=== PATIENT | female | born 1930 | race American Indian/Alaskan Native ===

== ENCOUNTER 2017-11-26 11:56 | Inpatient (IN) | payer OTHER, MEDICAID ==
--- NOTE | 2017-11-26 13:08 | EDPHY ---
H & P Stated Complaint: 2 left foot wounds concerned re infected here from wound care clinic Time Seen by Provider: 11/26/17 12:55 HPI/ROS: CHIEF COMPLAINT: Wound infection left ankle HISTORY OF PRESENT ILLNESS: 87-year-old female with diabetes presents with a wound infection on the left ankle. She has a 3 month history of an open wound on the medial aspect of the left foot. Over the last week, she has developed another wound on the posterior aspect of the ankle. Associated with moderate pain and inability to bear weight. She was sent here by the wound care clinic for MRI and further evaluation. No fever or chills. She is not on antibiotics. REVIEW OF SYSTEMS: complete 10 point ROS negative except at noted in the HPI - Personal History Current Tetanus/Diphtheria Vaccine: Yes Current Tetanus Diphtheria and Acellular Pertussis (TDAP): Yes Tetanus Vaccine Date: < 10 years - Medical/Surgical History Hx Asthma: No Hx Chronic Respiratory Disease: No Hx Diabetes: Yes Hx Cardiac Disease: Yes Hx Renal Disease: Yes Hx Cirrhosis: No Hx Alcoholism: No Hx HIV/AIDS: No Hx Splenectomy or Spleen Trauma: No Other PMH: DM 2, stage 5 kidney disease, PR, dementia, HTN - Social History Smoking Status: Never smoked - Physical Exam Exam: General Appearance: Alert, pleasant Eyes: Pupils equal and round, no conjunctival pallor or injection ENT, Mouth: Mucous membranes moist Neck: Normal inspection Respiratory: Lungs are clear to auscultation Cardiovascular: Regular rate and rhythm, 2/6 systolic murmur Gastrointestinal: Abdomen is soft and nontender Neurological: A&O, nonfocal exam Skin: Warm and dry Extremities: Left ankle-there is a 2 cm open wound on the posterior aspect of the ankle with surrounding fluctuance and erythema, serous drainage present, able to move left ankle without pain; 1.5 cm open wound on the medial aspect of the left ankle, without erythema, warmth or tenderness Psychiatric: Mood and affect normal Constitutional: Initial Vital Signs Temperature (C) 36.9 C 11/26/17 12:00 Heart Rate 58 L 11/26/17 12:00 Respiratory Rate 18 11/26/17 12:00 Blood Pressure 104/53 L 11/26/17 12:00 O2 Sat (%) 100 11/26/17 12:00 O2 Delivery Mode Room Air Allergies/Adverse Reactions: No Known Allergies Allergy (Unverified 11/26/17 11:59) Home Medications: Medication Instructions Recorded Aspirin [Aspirin 81mg (*)] 81 mg PO DAILY 11/26/17 Calcitriol [Calcitriol (*)] 0.25 mcg PO MOFR 11/26/17 Carvedilol [Carvedilol] 12.5 mg PO BID 11/26/17 Clopidogrel Bisulfate [Clopidogrel] 75 mg PO DAILY 11/26/17 Furosemide [Lasix 40 MG (*)] 40 mg PO DAILY 11/26/17 Gabapentin [Neurontin 300 MG (*)] 600 mg PO HS 11/26/17 Levothyroxine [Synthroid 112 mcg 112 mcg PO DAILY06 11/26/17 (*)] Pravastatin Sodium [Pravachol] 40 mg PO HS 11/26/17 SITAGLIPTIN PHOSPHATE [Januvia 50 50 mg PO DAILY 11/26/17 mg] Sodium Bicarbonate [Na Bicarb] 650 mg PO BID 11/26/17 Medical Decision Making - Diagnostics Imaging Results: Imaging Impressions Lower Extremity MRI 11/26/17 13:09 Impression: 1. Soft tissue wound with cellulitis medial to the posterior calcaneus with adjacent osteomyelitis in the posteromedial calcaneus and some osseous erosion. Adjacent moderate tendinopathy and partial tear of the distal Achilles tendon medially. Inflammatory change with possible early phlegmon in Kager's fat pad. 2. Mild tendinopathy distal tibialis posterior tendon. Mild adenopathy peroneal brevis and longus tendon. 3. Moderate plantar fasciitis with partial tear with a large enthesophyte at the plantar insertion of the calcaneus. Results called and discussed with Dr. Nohemi Jewell on November 26, 2017 at 1542 hours. ED Course/Re-evaluation: This patient presents with cellulitis and probable abscess of the left ankle, concern for osteomyelitis. She is nontoxic-appearing and does not meet SIRS criteria. Blood cultures drawn and Ancef 1 g IV given. Consult[address] Dr. Cabrera, plan for MRI, antibiotics and admission. The hospitalist service was consulted for admission. - Data Points Laboratory Results: Laboratory Results 11/26/17 13:12 11/26/17 13:12 11/26/17 11/26/17 11/26/17 13:12 13:12 13:12 WBC 10.08 10^3/uL H 10^3/uL (3.80-9.50) RBC 2.49 10^6/uL L 10^6/uL (4.18-5.33) Hgb 7.4 g/dL L g/dL (12.6-16.3) Hct 23.8 % L % (38.0-47.0) MCV 95.6 fL fL (81.5-99.8) MCH 29.7 pg pg (27.9-34.1) MCHC 31.1 g/dL L g/dL (32.4-36.7) RDW 13.8 % % (11.5-15.2) Plt Count 367 10^3/uL 10^3/uL (150-400) MPV 8.7 fL fL (8.7-11.7) Neut % (Auto) 81.9 % H % (39.3-74.2) Lymph % (Auto) 8.0 % L % (15.0-45.0) Dupage % (Auto) 7.7 % % (4.5-13.0) Eos % (Auto) 1.1 % % (0.6-7.6) Baso % (Auto) 0.6 % % (0.3-1.7) Nucleat RBC Rel Count 0.0 % % (0.0-0.2) Absolute Neuts (auto) 8.25 10^3/uL H 10^3/uL (1.70-6.50) Absolute Lymphs (auto) 0.81 10^3/uL L 10^3/uL (1.00-3.00) Absolute Monos (auto) 0.78 10^3/uL 10^3/uL (0.30-0.80) Absolute Eos (auto) 0.11 10^3/uL 10^3/uL (0.03-0.40) Absolute Basos (auto) 0.06 10^3/uL 10^3/uL (0.02-0.10) Absolute Nucleated RBC 0.00 10^3/uL 10^3/uL (0-0.01) Immature Gran % 0.7 % % (0.0-1.1) Immature Gran # 0.07 10^3/uL 10^3/uL (0.00-0.10) VBG Lactic Acid 1.8 mmol/L mmol/L (0.7-2.1) Sodium 135 mEq/L mEq/L (135-145) Potassium 3.2 mEq/L L mEq/L (3.5-5.2) Chloride 97 mEq/L mEq/L (97-110) Carbon Dioxide 24 mEq/l mEq/l (22-31) Anion Gap 14 mEq/L mEq/L (8-16) BUN 57 mg/dL H mg/dL (7-23) Creatinine 4.0 mg/dL H mg/dL (0.6-1.0) Estimated GFR 11 Glucose 144 mg/dL H mg/dL (70-100) Calcium 7.3 mg/dL L mg/dL (8.5-10.4) Phosphorus 4.3 mg/dL mg/dL (2.5-4.5) Microbiology Results: MICROBIOLOGY 11/26/17 13:00 Ankle - Swab Gram Stain - Final Medications Given: Acetaminophen (Tylenol) 650 mg PO Q4HRS PRN PRN Reason: Pain, Mild/Fever, Can Take PO Stop: 05/25/18 13:20 Last Admin: 11/26/17 16:21 Dose: 650 mg Calcitriol (Calcitriol) 0.25 mcg PO MoFr@0900 [facility] Stop: 05/25/18 16:14 Last Admin: 11/26/17 16:22 Dose: 0.25 mcg Carvedilol (Coreg) 12.5 mg PO BIDMEAL [facility] Stop: 05/25/18 17:59 Last Admin: 11/26/17 19:12 Dose: 12.5 mg Vancomycin HCl 500 mg/ (Dextrose) 100 mls @ 100 mls/hr IV Q48H GARRETT Stop: 12/26/17 15:59 Last Admin: 11/26/17 16:16 Dose: 100 mls Discontinued Medications Calcitriol (Calcitriol) 250 mcg PO MOFR [facility] Stop: 05/25/18 15:29 Last Admin: 11/26/17 16:24 Dose: Not Given Cefazolin Sodium/Dextrose (Ancef 1 Gm (Premix)) 50 mls @ 200 mls/hr IV EDNOW ONE PRN Reason: Protocol Stop: 11/26/17 13:26 Last Admin: 11/26/17 13:48 Dose: 50 mls Departure - Departure Disposition: [facility] Acute Clinical Impression: Cellulitis Qualifiers: Site of cellulitis: extremity Site of cellulitis of extremity: lower extremity Laterality: left Qualified Code(s): L03.116 - Cellulitis of left lower limb Osteomyelitis Qualifiers: Osteomyelitis type: other acute Osteomyelitis location: ankle Laterality: left Qualified Code(s): M86.172 - Other acute osteomyelitis, left ankle and foot Condition: Fair
[2017-11-26] MEDS ORDERED: ONDANSETRON DISINTEGRATING 4 MG TAB PO PRN (13:21)
[2017-11-26] MEDS ORDERED: ONDANSETRON 4 MG/2 ML VIAL IVP PRN (13:21)
[2017-11-26] MEDS ORDERED: OXYCODONE/APAP 5/325 TAB PO PRN (13:21)
--- NOTE | 2017-11-26 13:24 | ASMTLACE ---
STEVE Acuity / Level of Answers: Yes Care: Did the patient have an inpatient admission? Comorbidities - select Answers: Coronary Artery Disease all that apply Dementia Diabetes (uncontrolled or controlled) Moderate or severe liver or renal disease # of Emergency department Answers: 1-2 visits in the last 6 months Score: 14 Date Signed: 11/26/2017 01:23 PM Electronically Signed By:Heather Linn RN
[2017-11-26 13:25] LABS: PLATELET COUNT 367 10^3/uL (150-400)
[2017-11-26] MEDS ORDERED: CALCITRIOL 0.25 MCG CAP PO SCH ×2 (15:30→16:15)
[2017-11-26] MEDS ORDERED: VANCOMYCIN 500 MG in D5W 100 ML IV SCH (16:00)
[2017-11-26] MEDS: ACETAMINOPHEN 325 MG TAB PO PRN (16:21)
[2017-11-26] MEDS: CARVEDILOL 25 MG TAB PO SCH (19:12)
[2017-11-26] MEDS: HEPARIN 5,000 UNIT/0.5 ML SYR SC SCH (20:45)
[2017-11-26] MEDS: SODIUM BICARBONATE 650 MG TAB PO SCH (20:45)
[2017-11-26] MEDS: GABAPENTIN 300 MG CAP PO SCH (20:45)
[2017-11-26] MEDS: PRAVASTATIN SODIUM 40 MG TAB PO SCH (20:45)
[2017-11-26] MEDS ORDERED: CARVEDILOL 12.5 MG PO SCH (21:00)
[2017-11-27 05:09] LABS: PLATELET COUNT 361 10^3/uL (150-400)
[2017-11-27] MEDS: LEVOTHYROXINE 112 MCG TAB PO SCH (05:32)
[2017-11-27] MEDS: HEPARIN 5,000 UNIT/0.5 ML SYR SC SCH ×3 (05:32→21:05)
--- NOTE | 2017-11-27 08:07 | GCON ---
[f rep st] CONSULTATION CHIEF COMPLAINT: Left ankle wound. HISTORY OF PRESENT ILLNESS: Brii Olvera is an 87-year-old woman with end-stage diabetes who has a three month history of open wound over the medial aspect of her left foot. Over the previous month s he has noticed increasing breakdown of the skin over the posterior aspect of her ankle along her Achi lles tendon. She has developed increasing pain and inability bear weight. I have been consulted by Dr. Pavihtra Cabrera for additional discussion and treatment recommendations. She has a recent MRI which is consistent with osteomyelitis to her foot and ankle. PAST MEDICAL HISTORY: Cardiac disease, diabetes, renal disease, dementia and hypertension. MEDICATIONS: She takes aspirin, carvedilol and Plavix. ALLERGIES: No known drug allergies. SOCIAL HISTORY: Denies any tobacco or alcohol use currently. OBJECTIVE: This is a healthy, elderly woman in no acute distress. Examination of her left lower ext remity reveals a dressing which was taken down. She has a 1.5 cm ulcer over the medial calcaneus as well as a 1.5 cm ulcer over the posterior Achilles. There is gross purulence at the Achilles ulcer. The foot is indurated. She has intact ankle plantar flexion, dorsiflexion, digital flexion extensio n. Decreased sensation diffusely. An MRI of her lower extremities demonstrates soft tissue wounds over the posterior medial calcaneus a nd Achilles. There is partial tearing of the Achilles tendon. There is osteomyelitis through the ca lcaneus. IMPRESSION: Diabetic foot ulcer with associated osteomyelitis. TREATMENT PLAN: I spent 30 minutes [id number] discussion with her on treatment recommendations. Clint iven her age, diabetes and clear presence of osteomyelitis with nonhealing ulcers to her lower extrem ity in this area, I feel that soft tissue coverage would be a clear detriment to primary treatment of her ulcers. I have discussed amputation with below-knee amputation as the best treatment recommenda tion for removal of the infection, a stable wound bed may be healed and mobility. I will contact the patient's daughter this morning to discuss this further. I did discuss if this is left chronically that this will likely result in hospice placement as the infection progresses and ultimately sepsis angelita calloway. /[id number]/MODL
[2017-11-27] MEDS: CARVEDILOL 25 MG TAB PO SCH ×2 (08:43→17:42)
[2017-11-27] MEDS: SODIUM BICARBONATE 650 MG TAB PO SCH ×2 (08:44→21:05)
[2017-11-27] MEDS ORDERED: SITAGLIPTIN PHOSPHATE 50 MG PO SCH (09:00)
--- NOTE | 2017-11-27 13:18 | SOAPPROG ---
SOAP Progress Note Assessment/Plan: Assessment: attempted to see twice, patient on commode and did not want exam at that time. Will see tomorrow - did discuss case with hospitalist and reviewed ortho consultation - given degree of wound will keep in house, will ask ID to see. Recs from both surgery and ortho at this time are for amp. Pt wants to wait for Rick to eval and discuss. - Nothing new to add Plan: 11/27/17 13:16 Objective: Vital Signs Temp Pulse Resp BP Pulse Ox 36.8 C 66 14 145/73 H 96 11/27/17 07:50 11/27/17 07:50 11/27/17 07:50 11/27/17 07:50 11/27/17 07:50 Laboratory Results 11/27/17 04:45 11/27/17 04:45 ICD10 Worksheet Patient Problems: Problems Problem Status Onset Cellulitis Acute Osteomyelitis Acute
--- NOTE | 2017-11-27 13:51 | HOSPPROG ---
Hospitalist Progress Note Assessment/Plan: 87y female with chronic wound. Sent from wound clinic. First encounter, chart reviewed. D/W Dr polanco and Dr Nagel. #Wound with osteomylitis rec amputation pt waiting to d/w Dr Cabrera, returns on Wednesday cont IV abx consult Dr Nagel #ESRD pt not on HD not intervention at baseline #DM cont home meds #Anemia chronic disease stable #Dispo unclear D/W CM consider home with IV abx vs in hospital care Subjective: Pt sleeping. Arousable. Objective: Vital Signs Temp Pulse Resp BP Pulse Ox 36.8 C 66 14 158/89 H 96 11/27/17 07:50 11/27/17 09:00 11/27/17 07:50 11/27/17 09:00 11/27/17 09:00 Laboratory Results 11/27/17 04:45 11/27/17 04:45 - Physical Exam Constitutional: appears nourished, not in pain, chronically ill appearing Eyes: PERRL, anicteric sclera, EOMI Ears, Nose, Mouth, Throat: moist mucous membranes, hearing normal, ears appear normal Cardiovascular: No JVD, No tachycardia, No edema Respiratory: no respiratory distress, no rales or rhonchi, reduced air movement Gastrointestinal: normoactive bowel sounds, No tenderness, No ascites Skin: warm, erythema, pressure ulcer Musculoskeletal: pain with ROM, muscular tenderness, generalized weakness Psychiatric: not anxious, poor insight, poor judgement ICD10 Worksheet Patient Problems: Problems Problem Status Onset Cellulitis Acute Osteomyelitis Acute
--- NOTE | 2017-11-27 14:17 | PDMN ---
Medical Necessity Medical necessity: C/M review: est. > 2 MN LOS for ongoing acute and persistent left ankle wound with osteomyelitis, requiring Orthopedic consult which recommends amputation, General Surgery consult, planned Infectious Disease consult, ongoing IV Vancomycin, comorbid ESRD not on hemodialysis, diabetes, chronic anemia per 11/27/2017 Hospitalist progress note.
--- NOTE | 2017-11-27 15:50 | GCON ---
[f rep st] CONSULTATION INPATIENT INFECTIOUS DISEASE CONSULTATION REFERRING PHYSICIAN: Jerri Carey NP REASON FOR REFERRAL: Left calcaneal osteomyelitis. HISTORY OF PRESENT ILLNESS: Patient is an 87-year-old female, who was referred to the emergency room on 11/26/2017 for admission due to worsening left lower extremity wounds. The patient has known und erlying diabetes for many decades. She has moderate to severe chronic renal insufficiency and known peripheral vascular disease. The patient did undergo an MRI upon this admission yesterday, and the M RI revealed calcaneal osteomyelitis on the posterior medial aspect of the left foot. There were also multiple tendinopathies in the area as well. The patient had surgical consultation from Orthopedics as well as General Surgery, who both agree that the healing potential for this patient with debridem ent and wound care is extraordinarily low. Both suggest [id number] amputation. We are consulted to help guide antibiotic treatment, as there was some concern that she has periwound infection in th e left heel area. Culture was taken of the wound yesterday, and it is growing multiple bacteria with group A Streptococcus subcultured out. The patient does not have any fevers or chills. She has sig nificant underlying dementia. Her [id number] is her daughter, who is in the room. She states that her mother is feeling decent today. No systemic indications of infection. She has not been on any antibiotics for the last 3 months. She did receive a dose of vancomycin yesterday. PAST MEDICAL HISTORY: 1. Coronary artery disease, status post myocardial infarction. 2. Diabetes mellitus type 2. 3. Chronic renal insufficiency secondary to #2. 4. Mild to severe dementia. 5. Hypertension. PAST SURGICAL HISTORY: None noted. ANTIBIOTICS: Vancomycin x1. ALLERGIES: No known drug allergies. SOCIAL HISTORY: The patient has very good family support. No alcohol, tobacco or drug use noted. FAMILY HISTORY: Reviewed, but noncontributory. REVIEW OF SYSTEMS: Other than that detailed above in history of present illness, a comprehensive 10- system review is negative. PHYSICAL EXAMINATION: VITAL SIGNS: Temperature maximum is 37.1. Temperature current is 36.8, heart rate 66. Respiratory rate is 14. Blood pressure is 145/73. GENERAL: The patient is a well-formed , thin, elderly female, in no acute distress. She is not toxic in appearance. She is alert, but unc lear her orientation. She is pleasant in demeanor. HEENT: Normocephalic for age. Atraumatic. No scleral icterus. No oral lesion. No drainage from the nares. Eyes, lids, conjunctiva are within normal limits. Pupils are equal and round bilaterally. NECK: Mcclain pple. No meningismus. LUNGS: Clear to auscultation bilaterally. Good effort. HEART: Regular rat e and rhythm. No significant peripheral edema. SKIN: Warm and dry to the touch. No rashes noted. Patient has open ulcerations on the posterior aspect of her left foot. The medial ulceration is slo ugh filled at its base. Has dusky erythema surrounding. Posterior more midline ulceration has more discharge, but is also slough filled. There is also dusky erythema surrounding this skin defect. Th e erythema is confluent with both. There is no streaking up the leg. There is no significant tender ness around the area. LABORATORY DATA: Patient has a CBC dated 11/27/2017, shows a white blood cell count of 6.7, hemoglob in 7.2, hematocrit 22.8, platelet count of 361. Differential is within normal limits. Serum air quality [facility] on 11/27/2017 show sodium 139, potassium 3.6, chloride 103, bicarb 26, BUN 58, creatinine of 3.7 . MICROBIOLOGIC DATA: Blood cultures on 11/26/2017 are pending. Ankle wound swab on 11/26/2017 is lino wing mixed cutaneous ruth with 4+ group A Streptococcus. RADIOLOGIC DATA: Left lower extremity MRI from 11/26/2017 shows soft tissue wound with cellulitis me dial to the posterior calcaneus with adjacent osteomyelitis in the posterior medial calcaneus with so me osseous erosion. Also shows adjacent moderate tendinopathy and a partial tear of the distal Achil les tendon. Also shows inflammatory change with possible early phlegmon in the nearby fat pad. ASSESSMENT: Left posterior heel open ulcerations probably secondary to poor arterial circulation. U nclear whether or not these are secondarily infected. The bacterial cultures are reminiscent of what would typically be on the skin surface, but could also be pathogenic in the soft tissues. I am not against covering for skin and soft tissue infection, although I do not think using IV antibiotics to try to treat the calcaneal osteomyelitis is going to be fruitful, given that the wound healing and co verage of that open area is unlikely to be complete, even following 6 weeks of treatment. The only p ossible long-term scenario of keeping her infection from causing ultimate life-threatening problems w ould be a left BKA in my estimation. This has been discussed with the patient and her daughter chante de leon, and they are understanding that. I suggest that we could place her on oral beta lactam antibiotic s such as Augmentin to go home in order to try to keep the soft tissue process at bay, which I think would be quite successful, and then meet with Dr. Dubon when she returns on Wednesday or Wednesday to d iscuss semi-elective amputation. This was received well by the patient and her daughter. Will discu ss with Dr. Dubon to see if we can proceed with this plan. PLAN: 1. No more vancomycin, given the chronic renal insufficiency. 2. Probably recommend oral Augmentin renally adjusted to go home to attempt to treat any soft tissue infection around these open ulcers. Acknowledging the osteomyelitis is ultimately not curable, give n the vasculopathy and diabetes. Would then defer to surgical plans with Dr. Dubon. 3. Continue wound care. /[id number]/MODL
--- NOTE | 2017-11-27 16:39 | ASMTCMCOM ---
CM Note CM Note Notes: Pt. is an 87-year-old woman admitted with a bad left ankle wound that is found to be growing Group A Strep. A below the knee amputation has been recommended, but Pt. does not want to proceed without discussing options with Dr. Cabrera. Due to Dr. Cabrera not being back until Wednesday, Hospitalist wondered if we should d/c Pt. home in the meantime. ID consult suggests Pt. can likely go home with oral Augmentin until surgical consult with Dr. Cabrera. Pt. may d/c tomorrow. CM needs to work with Pt. and daughter regarding plan. Date Signed: 11/27/2017 04:39 PM Electronically Signed By:Yanci Gloria LCSW
[2017-11-27] MEDS: ACETAMINOPHEN 325 MG TAB PO PRN (17:45)
[2017-11-27] MEDS: GABAPENTIN 300 MG CAP PO SCH (21:05)
[2017-11-27] MEDS: PRAVASTATIN SODIUM 40 MG TAB PO SCH (21:05)
[2017-11-28] MEDS: ACETAMINOPHEN 325 MG TAB PO PRN (05:03)
[2017-11-28] MEDS: HEPARIN 5,000 UNIT/0.5 ML SYR SC SCH (05:03)
[2017-11-28] MEDS: LEVOTHYROXINE 112 MCG TAB PO SCH (05:04)
[2017-11-28] MEDS: SODIUM BICARBONATE 650 MG TAB PO SCH (08:09)
[2017-11-28] MEDS: CARVEDILOL 25 MG TAB PO SCH (08:11)
[2017-11-28 08:13] VITALS: BP 154/72
--- NOTE | 2017-11-28 09:51 | SOAPPROG ---
SOAP Progress Note Assessment/Plan: Assessment: wants to go home. Planning dc later today. Still hasnt made up her mind about how to proceed. Will see Dr Cabrera this week to discuss further plans. Plan: 11/27/17 13:16 11/28/17 09:51 Subjective: no complaints Objective: Vital Signs Temp Pulse Resp BP Pulse Ox 37.0 C 65 16 154/72 H 95 11/28/17 08:13 11/28/17 08:11 11/28/17 08:13 11/28/17 08:11 11/27/17 23:38 Laboratory Results 11/27/17 04:45 11/27/17 04:45 11/27/17 11/28/17 11/29/17 05:59 05:59 05:59 Intake Total 100 Output Total 1 Balance 99 ICD10 Worksheet Patient Problems: Problems Problem Status Onset Cellulitis Acute Osteomyelitis Acute
--- NOTE | 2017-11-28 10:49 | ASMTCMCOM ---
CM Note CM Note Notes: CM spoke with hospitalist, floor RN, patient and daughter, plan for patient to discharge home today independently with daughter. Will follow up with Dr. Cabrera on . IM given to patient, signed copy placed in back of chart. CM available for any additional CM needs. D/C Plan: D/C home today independent with daughter. Date Signed: 11/28/2017 10:49 AM Electronically Signed By:Shiela Gamez
--- NOTE | 2017-11-28 14:58 | GDS ---
[f rep st] DISCHARGE SUMMARY DISCHARGE DIAGNOSES: 1. Osteomyelitis. 2. Diabetes mellitus. 3. End-stage renal disease. CONSULTATIONS: 1. General Surgery. 2. Infectious Disease. PHYSICAL EXAM: GENERAL: The patient is alert. VITAL SIGNS: Afebrile at 37, pulse 65, respiratory rate is 16, blood pressure is 154/72. She is saturating greater than 90% on room air. I have seen and evaluated the patient on the day of discharge. HOSPITAL COURSE: The patient is an 87-year-old female sent to hospital from the Wound Clinic. She was evaluated and diagnosed with: 1. Osteomyelitis of the left lower extremity. During this hospitalization, it was recommended that she have a BKA. This recommendation was by General Surgery as well as Orthopedics and Infectious Disease. The patient has refused this at this time and will make a decision in the outpatient setting. She will continue on oral Augmentin. 2. End-stage renal disease. She chooses not to have dialysis and is at her baseline renal function. 3. Diabetes mellitus. Again, her blood sugar will be controlled. 4. Disposition: She will be discharged home. She has been offered home health care; however, she and her family have refused at this time. Followup will be in [address] Mickie Cabrera, her general surgeon. DISCHARGE MEDICATIONS: Please refer to EMR form. I have provided the patient a prescription for Augmentin renally dosed 250 mg daily. Again, she will follow up with her primary care physician. I have spent greater than 35 minutes in the care, coordination, and management of the patient's disposition. /[id number]/MODL MTDD
--- NOTE | 2017-11-28 15:40 | ASDISCHSUM ---
Discharge Information Plan Status:Home with Home Health Medically Cleared to Leave: Discharge Date:11/28/2017 11:25 AM CM D/C Disposition:Home Health Service ADT D/C Disposition:Home, Routine, Self-Care Projected Discharge Date:11/28/2017 11:25 AM Transportation at D/C:Family Discharge Delay Reason: Follow-Up Date:11/28/2017 11:25 AM Discharge Slot:1 - 8:01 am - 12:00 noon Final Diagnosis: Placement Information Patient Contact Information Contact Name:LUIS M Relationship:Daughter Address:[address] [place] Alternate Phone: State/Zip Code:[place] [address] Email: Financial Information Financial Class:Medicare Primary Plan Desc:MEDICARE INPATIENT Primary Plan Number:[id number] Secondary Plan Desc:[place] Secondary Plan Number:[id number] Assessment Information LACE LACE Acuity / Level of Answers: Yes Care: Did the patient have an inpatient admission? Comorbidities - select Answers: Coronary Artery Disease all that apply Dementia Diabetes (uncontrolled or controlled) Moderate or severe liver or renal disease # of Emergency department Answers: 1-2 visits in the last 6 months Score: 14 Date Signed: 11/26/2017 01:23 PM Electronically Signed By:Heather Linn RN [facility] CM Progress Note CM Note CM Note Notes: Pt. is an 87-year-old woman admitted with a bad left ankle wound that is found to be growing Group A Strep. A below the knee amputation has been recommended, but Pt. does not want to proceed without discussing options with Dr. Cabrera. Due to Dr. Cabrera not being back until Wednesday, Hospitalist wondered if we should d/c Pt. home in the meantime. ID consult suggests Pt. can likely go home with oral Augmentin until surgical consult with Dr. Cabrera. Pt. may d/c tomorrow. CM needs to work with Pt. and daughter regarding plan. Date Signed: 11/27/2017 04:39 PM Electronically Signed By:Yanci Gloria LCSW [facility] CM Progress Note CM Note CM Note Notes: CM spoke with hospitalist, floor RN, patient and daughter, plan for patient to discharge home today independently with daughter. Will follow up with Dr. Cabrera on . IM given to patient, signed copy placed in back of chart. CM available for any additional CM needs. D/C Plan: D/C home today independent with daughter. Date Signed: 11/28/2017 10:49 AM Electronically Signed By:Shiela Gamez Intervention Information
== END 2017-11-28 11:25 | disposition home or self-care (01) | DRG 638 ==
LOC: F3E 15:34
PROVIDERS: ADMIT Hospitalist; ATTEND Hospitalist
DX: E11.621 Type 2 diabetes mellitus with foot ulcer (principal); M86.172 Other acute osteomyelitis, left ankle and foot; L97.429 Non-pressure chronic ulcer of left heel and midfoot with unspecified severity; I12.0 Hypertensive chronic kidney disease with stage 5 chronic kidney disease or end stage renal disease; F03.90 Unspecified dementia, unspecified severity, without behavioral disturbance, psychotic disturbance, mood disturbance, and anxiety; I25.10 Atherosclerotic heart disease of native coronary artery without angina pectoris; E11.22 Type 2 diabetes mellitus with diabetic chronic kidney disease; N18.5 Chronic kidney disease, stage 5; I25.2 Old myocardial infarction; E11.51 Type 2 diabetes mellitus with diabetic peripheral angiopathy without gangrene
CPT/HCPCS: 97162-GP; 97166-GO; 97535-GO; G8978-GP-CJ; G8979-GP-CI; G8987-GO-CK; G8988-GO-CI; G8989-GO-CJ; J0690; J1644; J3370